=== PATIENT | female | born 1980 | race Asian ===

== ENCOUNTER → 2023-06-23 | Outpatient (CLI) | payer OTHER ==
[~2023-06-23] MED LIST: ADVIL200 MG PO; AZO-STANDARD95 MG PO; CEFTIN500 MG PO; FLEXERIL 1010 MG/TAB PO; IBU600 MG PO; MACROBID 1100 MG/CAP PO; NATURAL IRON65 MG PO; ONE DAILY1 TA1 PO; PERCOCET 325 MG1 TA2 PO; PRENATAL MVI PO; ZOFRAN ODT4 MG PO
== END ==
LOC: MC.RAD 16:28
DX: Z12.31 Encounter for screening mammogram for malignant neoplasm of breast (principal)

== ENCOUNTER 2024-01-07 21:05 | Emergency (ER) | payer OTHER ==
[~2024-01-07] VITALS: Ht 149.9 cm; Wt 68.2 kg
[2024-01-07 21:18] VITALS: BP 153/90; TEMP 98.3
[2024-01-07] MEDS ORDERED: predniSONE 10 MG TAB PO ONE (22:45)
[2024-01-07] MEDS ORDERED: PREDNISONE50 MG PO (23:43)
[2024-01-07 23:45] VITALS: PULSE 62
[2024-01-08] MEDS ORDERED: PREDNISONE20 MG PO (11:45)
== END 2024-01-07 23:45 | disposition home or self-care (01) ==
LOC: COL.ER 21:05
DX: L20.9 Atopic dermatitis, unspecified (principal)
CPT/HCPCS: J7512